=== PATIENT | female | born 1990 | race Hispanic/Latino ===

== ENCOUNTER 2018-09-25 14:06 | Emergency (ER) | payer BC ==
--- OUTSIDE RECORDS SUMMARY | 2018-09-25 14:08 | XMS REPORT | Clinical Summary ---
:1990 Author Organization [facility] Address [address] [place] [id number] Care Team Providers Name Role Phone Sidra Fabian MD Primary Care Provider Allergies Not on File Medications Not on file Active Problems Not on file Family History Medical History Relation Name Comments Cancer Maternal Aunt Heide osteosarcoma Diabetes Maternal Grandmother [place] Anesthesia problems Mother Verónica woke up during surgery Cancer Mother Verónica cervical cancer Diabetes Mother Verónica Relation Name Status Comments Maternal Aunt Heide Maternal Grandmother [place] Mother Verónica Social History Tobacco Use Types Packs/Day Years Used Date Never Smoker Alcohol Use Drinks/Week oz/Week Comments No Sex Assigned at Date Recorded Not on file Job Start Date Occupation Industry Not on file Not on file Not on file Travel History Travel Start Travel End No recent travel history available. Last Filed Vital Signs Not on file Plan of Treatment Health Maintenance Due Date Last Done Comments INFLUENZA VACCINE 09/08/2018 Results Not on fileafter 09/24/2017 Advance Directives Type Date Recorded Patient Watch Assembly Inspector Explanation Advance Directives, 07/09/2015 6:41 PM Living Will and Medical Power of Paralegal Supervisor
--- OUTSIDE RECORDS SUMMARY | 2018-09-25 14:08 | XMS REPORT ---
:1990 Author Organization [facility] Address [address] [place] [address] [place] [id number] Care Team Providers Name Role Phone Unavailable Unavailable Unavailable Problems This patient has no known problems. Allergies, Adverse Reactions, Alerts This patient has no known allergies or adverse reactions. Medications This patient has no known medications. Encounters Start End Encounter Admission Attending Care Care Encounter Date/Time Date/Time Type Type Clinicians Facility Department ID 2016-10-20 2016-10-20 Outpatient [facility] [id number] 00:00:00 00:00:00 2016-10-20 2016-10-20 Outpatient [facility] [id number] 00:00:00 00:00:00 2016-09-18 2016-09-18 Outpatient [facility] [id number] 00:00:00 00:00:00 2016-09-16 2016-09-16 Outpatient [facility] [id number] 11:33:17 11:33:17 2016-09-14 2016-09-14 Outpatient [facility] [id number] 10:00:41 10:00:41 2016-09-09 2016-09-09 Outpatient [facility] [id number] 07:21:50 07:21:50 2016-09-02 2016-09-02 Outpatient [facility] [id number] 10:10:04 10:10:04 2016-08-26 2016-08-26 Outpatient [facility] [id number] 12:05:40 12:05:40 2016-08-26 2016-08-26 Outpatient [facility] [id number] 11:10:18 11:10:18 2016-08-20 2016-08-20 Outpatient [facility] [id number] 15:27:28 15:27:28 2016-08-05 2016-08-05 Outpatient [facility] [id number] 15:30:16 15:30:16 2016-08-05 2016-08-05 Outpatient [facility] [id number] 09:40:43 09:40:43 2016-07-31 2016-07-31 Outpatient [facility] [id number] 13:29:39 13:29:39 2016-07-20 2016-07-20 Outpatient [facility] [id number] 10:21:07 10:21:07 2016-07-16 2016-07-16 Outpatient [facility] [id number] 10:34:56 10:34:56 2016-07-08 2016-07-08 Outpatient [facility] [id number] 09:54:52 09:54:52 2016-07-07 2016-07-07 Outpatient [facility] [id number] 13:38:01 13:38:01 2016-07-07 2016-07-07 Outpatient [facility] [id number] 13:05:02 13:05:02
[2018-09-25] MEDS ORDERED: dexAMETHasone 10 MG/ML VIAL ONE (15:36)
[2018-09-25] MEDS ORDERED: DIAZEPAM 5 MG TABLET ONE (15:37)
[2018-09-25] MEDS ORDERED: KETOROLAC 30 MG/ML INJ ONE (15:37)
[2018-09-25] MEDS ORDERED: MORPHINE 4 MG/ML SYR ONE (16:31)
--- NOTE | 2018-09-25 16:43 | ER ---
Nurse's Notes [facility] Name: Albania Yepez Age: 28 yrs Sex: Female : 1990 Arrival Date: 09/25/2018 Time: 14:08 Bed 30 Private MD: Diagnosis: Lumbago with sciatica Presentation: 09/25 14:13 Presenting complaint: Patient states: i have sciatic nerve pain and i am seeing a tw2 specialist for it, i sneezed last night when i was laying down i felt something pop in my lower back, i got up to use the bathroom, it hurts worse on the right and the tingling goes down to my toes and my left it hurts and the tingling is down to my knee, i havent had a bm in 2 days, when i try to sit i am in excruciating pain, it has never been this bad before, i start aquatic PT on Wednesday and i have lidocaine patches, i put them on at night for 12 hours. Transition of care: patient was not received from another setting of care. Onset of symptoms was September 25, 2018. Risk Assessment: Do you want to hurt yourself or someone else? Patient reports no desire to harm self or others. Initial Sepsis Screen: Does the patient meet any 2 criteria? No. Patient's initial sepsis screen is negative. Does the patient have a suspected source of infection? No. Patient's initial sepsis screen is negative. Note this morning i took a muscle relaxer and this cream with lidocaine on and nothing is helping. Care prior to arrival: None. 14:13 Method Of Arrival: Wheelchair tw2 14:13 Acuity: ANTONIO 3 tw2 Triage Assessment: 14:16 General: Appears uncomfortable, Behavior is crying. Pain: Complains of pain in back. tw2 Musculoskeletal: Circulation, motion, and sensation intact. Reports pain in back, right leg and left leg. 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 - Social history:: Smoking status: . - Ebola Screening: : Patient denies travel to an Ebola-affected area in the 21 days before illness onset. Screenin:58 Abuse screen: Denies threats or abuse. Nutritional screening: No deficits noted. em Tuberculosis screening: No symptoms or risk factors identified. Fall Risk None identified. Assessment: 15:00 General: Appears in no apparent distress. uncomfortable, Behavior is calm, cooperative, em Denies fever. Pain: Complains of pain in lumbar area Pain currently is 8 out of 10 on a pain scale. Pain began 1 day ago. Neuro: Level of Consciousness is awake, alert, obeys commands, Oriented to person, place, time, situation, Appropriate for age Reports paresthesias in right leg, left quadriceps and left knee. Cardiovascular: Capillary refill < 3 seconds Patient's skin is warm and dry. Respiratory: Airway is patent Respiratory effort is even, unlabored, Respiratory pattern is regular, symmetrical. GI: Patient currently denies nausea, vomiting. Derm: Skin is intact, is healthy with good turgor, Skin is pink, warm \T\ dry. Musculoskeletal: Capillary refill < 3 seconds, Range of motion: intact in all extremities. 16:10 Reassessment: Patient appears in no apparent distress at this time. Patient and/or em family updated on plan of care and expected duration. Pain level reassessed. Patient is alert, oriented x 3, equal unlabored respirations, skin warm/dry/pink. rates pain 8/10, pain unchanged, provider notified, new medication orders received Patient states symptoms have not improved. 17:00 Reassessment: Patient appears in no apparent distress at this time. Patient and/or em family updated on plan of care and expected duration. Pain level reassessed. Patient is alert, oriented x 3, equal unlabored respirations, skin warm/dry/pink. Patient denies pain at this time. Patient states symptoms have improved. Vital Signs: 14:16 BP 141 / 88; Pulse 101; Resp 18; Temp 99.0(TE); Pulse Ox 99% on R/A; Weight 106.59 kg; tw2 Height 5 ft. 6 in. (167.64 cm); Pain 8/10; 15:15 BP 129 / 78; Pulse 70; Resp 18; Pulse Ox 99% on R/A; Pain 8/10; em 17:00 BP 135 / 73; Pulse 75; Resp 16; Pulse Ox 100% on R/A; Pain 5/10; em 14:16 Body Mass Index 37.93 (106.59 kg, 167.64 cm) tw2 ED Course: 14:08 Patient arrived in ED. as 14:16 Triage completed. tw2 14:16 Arm band placed on. tw2 14:50 Garfield Pickering LVN is Primary Nurse. em 14:59 Patient has correct armband on for positive identification. Placed in gown. Bed in low em position. Call light in reach. Adult w/ patient. Pulse ox on. NIBP on. 15:03 Sukhi Rolle NP is PHCP. pm1 15:03 Silvio Brooke MD is Attending Physician. pm1 16:54 No provider procedures requiring assistance completed. Patient did not have IV access tw2 during this emergency room visit. Administered Medications: 15:44 Drug: TORadol 60 mg Route: IM; Site: left gluteus; em 16:32 Follow up: Response: No adverse reaction; Pain is unchanged, physician notified em 15:45 Drug: Valium 5 mg Route: PO; em 16:32 Follow up: Response: No adverse reaction; Pain is unchanged, physician notified em 15:45 Drug: Decadron 10 mg {Note: given PO in juice.} Route: IM; Site: Other; em 16:31 Follow up: Response: No adverse reaction; Pain is unchanged, physician notified em 16:36 Drug: morphine 4 mg Route: IM; Site: right deltoid; em 17:00 Follow up: Response: No adverse reaction; Marked relief of symptoms; Pain is decreased; em RASS: Alert and Calm (0) Outcome: 16:43 Discharge ordered by MD. pm1 16:54 Discharged to home via wheelchair, with significant other. tw2 16:54 Condition: stable 16:54 Discharge instructions given to patient, significant other, Instructed on discharge instructions, follow up and referral plans. medication usage, Demonstrated understanding of instructions, follow-up care, medications, Prescriptions given X 1. 17:12 Patient left the ED. em Signatures: Garfield Pickering, CONTINUOUS YARN DYEING MACHINE OPERATOR CONTINUOUS YARN DYEING MACHINE OPERATOR Claudia Mccarty Patrick, PET CARE ASSISTANT PET CARE ASSISTANT pm1 Candy Ellis, RN RN tw2
--- NOTE | 2018-09-25 16:44 | EDPHYS ---
Physician Documentation [facility] Name: Albania Yepez Age: 28 yrs Sex: Female : 1990 Arrival Date: 09/25/2018 Time: 14:08 Bed 30 Private MD: ED Physician Silvio Brokoe HPI: 09/25 15:34 This 28 yrs old Female presents to ER via Wheelchair with complaints of Back pm1 Pain. 15:34 The patient presents with pain that is chronic, Sneezed and caused increased pain to pm1 her lower back. The symptoms are located in the low back. Location: left leg and right leg. Associated signs and symptoms: Pertinent positives: constipation, Pertinent negatives: abdominal pain, chest pain, fever, numbness, tingling, vomiting, weakness, Shortness of breath. The problem was sustained sneezing. Modifying factors: the patient symptoms are aggravated by movement, sitting. Severity of symptoms: in the emergency department the symptoms are actually worse. The patient has experienced similar episodes in the past, chronically. The patient has been recently seen by a physician: pain management ordered a CT of back in about 1 week. 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 - Social history:: Smoking status: . - Ebola Screening: : Patient denies travel to an Ebola-affected area in the 21 days before illness onset. ROS: 15:34 Constitutional: Negative for fever, chills, and weight loss, Eyes: Negative for injury, pm1 pain, redness, and discharge, ENT: Negative for injury, pain, and discharge, Neck: Negative for injury, pain, and swelling, Cardiovascular: Negative for chest pain, palpitations, and edema, Respiratory: Negative for shortness of breath, cough, wheezing, and pleuritic chest pain, : Negative for injury, bleeding, discharge, and swelling, MS/Extremity: Negative for injury and deformity, Skin: Negative for injury, rash, and discoloration, Neuro: Negative for headache, weakness, numbness, tingling, and seizure. 15:34 Abdomen/GI: Positive for constipation, Negative for abdominal pain, nausea, vomiting, and diarrhea. 15:34 Back: Positive for of the low back area, pain. Exam: 15:34 Constitutional: This is a well developed, well nourished patient who is awake, alert, pm1 and in no acute distress. Head/Face: Normocephalic, atraumatic. Chest/axilla: Normal chest wall appearance and motion. Nontender with no deformity. No lesions are appreciated. Cardiovascular: Regular rate and rhythm with a normal S1 and S2. No gallops, murmurs, or rubs. Normal PMI, no JVD. No pulse deficits. Respiratory: Lungs have equal breath sounds bilaterally, clear to auscultation and percussion. No rales, rhonchi or wheezes noted. No increased work of breathing, no retractions or nasal flaring. Abdomen/GI: Soft, non-tender, with normal bowel sounds. No distension or tympany. No guarding or rebound. No evidence of tenderness throughout. 15:34 Skin: Warm, dry with normal turgor. Normal color with no rashes, no lesions, and no evidence of cellulitis. MS/ Extremity: Pulses equal, no cyanosis. Neurovascular intact. Full, normal range of motion. 15:34 Back: pain, that is moderate, of the lumbar area and right low back, normal spinal alignment noted, muscle spasm, is appreciated in the right low back. 15:34 Neuro: Orientation: is normal, Mentation: is normal, Motor: moves all fours, strength is 5/5 in all extremities, bilateral planter and dorsiflexion of great toes 5/5 strength, Sensation: is normal, no obvious gross deficits. Vital Signs: 14:16 BP 141 / 88; Pulse 101; Resp 18; Temp 99.0(TE); Pulse Ox 99% on R/A; Weight 106.59 kg; tw2 Height 5 ft. 6 in. (167.64 cm); Pain 8/10; 15:15 BP 129 / 78; Pulse 70; Resp 18; Pulse Ox 99% on R/A; Pain 8/10; em 17:00 BP 135 / 73; Pulse 75; Resp 16; Pulse Ox 100% on R/A; Pain 5/10; em 14:16 Body Mass Index 37.93 (106.59 kg, 167.64 cm) tw2 MDM: 15:16 Patient medically screened. pm1 15:34 ED course: Patient offered abdominal x-ray to assess constipation. Patient and family pm1 member at bedside to not believe constipation is the issue but her back pain. Patient unable to tolerate sitting for long durations to allow her to defecate. Therefore they refused x-ray. Therefore I will address her pain and recommended improved dietary and OTC laxatives for relief. Patient has pain management, Dr. Fish. treating her 1 year long lumbago with sciatica. Has a CT of low back within the week. Explained to patient that I can give pain medications in the ER but will not be able to provide a prescription due to pain management MD. 16:23 Data reviewed: vital signs. Data interpreted: Pulse oximetry: on room air is 99 %. pm1 Interpretation: normal. 16:42 Counseling: I had a detailed discussion with the patient and/or guardian regarding: the pm1 historical points, exam findings, and any diagnostic results supporting the discharge/admit diagnosis, the need for outpatient follow up, for definitive care, a neurosurgeon, a furniture painter, to return to the emergency department if symptoms worsen or persist or if there are any questions or concerns that arise at home. 17:12 ED course: Patient reports improvement in pain, 4-5/10 currently. pm1 Administered Medications: 15:44 Drug: TORadol 60 mg Route: IM; Site: left gluteus; em 16:32 Follow up: Response: No adverse reaction; Pain is unchanged, physician notified em 15:45 Drug: Valium 5 mg Route: PO; em 16:32 Follow up: Response: No adverse reaction; Pain is unchanged, physician notified em 15:45 Drug: Decadron 10 mg {Note: given PO in juice.} Route: IM; Site: Other; em 16:31 Follow up: Response: No adverse reaction; Pain is unchanged, physician notified em 16:36 Drug: morphine 4 mg Route: IM; Site: right deltoid; em 17:00 Follow up: Response: No adverse reaction; Marked relief of symptoms; Pain is decreased; em RASS: Alert and Calm (0) Disposition: 09/25/18 16:43 Discharged to Home. Impression: Lumbago with sciatica. - Condition is Stable. - Discharge Instructions: Back Pain, Adult, Chronic Back Pain. - Prescriptions for Medrol ([place]) 4 mg Oral Tablets, Dose Pack - take 1 tablet by ORAL route as directed - follow package instructions; 1 packet. - Medication Reconciliation Form, Thank You Letter, Antibiotic Education, Prescription Opioid Use, Work release form, Family Work Release form. - Follow up: Emergency Department; When: As needed; Reason: Worsening of condition. Follow up: Private Physician; When: 2 - 3 days; Reason: Recheck today's complaints, Continuance of care, Re-evaluation by your physician. - Problem is new. - Symptoms have improved. Addendum: 09/27/2018 15:36 Co-signature as Attending Physician, Silvio Brooke MD. g s Signatures: Garfield Pickering, SUPERVISOR VAT HOUSE SUPERVISOR VAT HOUSE em Sukhi Rolle, CHILD CARE COORDINATOR CHILD CARE COORDINATOR pm1 Candy Ellis RN RN tw2 Silvio Brooke MD MD Corrections: (The following items were deleted from the chart) 09/25 17:12 16:43 09/25/2018 16:43 Discharged to Home. Impression: Lumbago with sciatica. Condition em is Stable. Forms are Medication Reconciliation Form, Thank You Letter, Antibiotic Education, Prescription Opioid Use. Follow up: Emergency Department; When: As needed; Reason: Worsening of condition. Follow up: Private Physician; When: 2 - 3 days; Reason: Recheck today's complaints, Continuance of care, Re-evaluation by your physician. Problem is new. Symptoms have improved. pm1
== END 2018-09-25 17:12 | disposition home or self-care (01) ==
LOC: ER 14:06
DX: M54.40 Lumbago with sciatica, unspecified side (principal)
CPT/HCPCS: 96372; 99283; J1100